=== PATIENT | male | born 1960 | race African-American/Black ===

== ENCOUNTER 2017-11-20 16:01 | Emergency (ER) | payer MEDICARE ==
[~2017-11-20] VITALS: Ht 198.1 cm; Wt 88.0 kg
[2017-11-20 16:09] VITALS: BP 161/88
== END 2017-11-20 16:43 | disposition left against medical advice (07) ==
LOC: ER 16:01
DX: S01.81XA Laceration without foreign body of other part of head, initial encounter (principal); W20.8XXA Other cause of strike by thrown, projected or falling object, initial encounter; Y93.9 Activity, unspecified; Y92.9 Unspecified place or not applicable
CPT/HCPCS: 99281

== ENCOUNTER 2021-02-07 00:53 | Emergency (ER) | payer BC, MEDICARE ==
[~2021-02-07] VITALS: Ht 198.1 cm; Wt 90.0 kg
[2021-02-07 03:12] LABS: BASOPHILS % 0.2 % (0.0-2.0); EOSINOPHILS % 1.6 % (0.0-5.0); HEMATOCRIT. 38.5 % (42.0-52.0); HEMOGLOBIN. 13.1 g/dL (14.0-18.0); LYMPHOCYTES % 22.9 % (20.0-50.0); MEAN CORPUSCULAR HEMOGLOBIN 32.4 pg (28.0-32.0); MEAN CORPUSCULAR VOLUME 95.4 fL (80.0-94.0); MEAN PLATELET VOLUME 8.6 fl (7.4-10.4); MONOCYTES % 6.7 % (2.0-8.0); NEUTROPHILS % 68.6 % (40.0-76.0); PLATELET 174 x1000/uL (130-400); RED BLOOD CELL COUNT 4.03 mill/uL (4.7-6.1); RED CELL DISTRIBUTION WIDTH 12.7 % (11.6-14.6)
[2021-02-07 03:19] LABS: CHLORIDE 108 mEq/L (98-107)
[2021-02-07 04:00] VITALS: BP 150/83
[2021-02-07] MEDS ORDERED: LORAZEPAM 1MG TABLET PO ONE (04:00)
[2021-02-07 05:02] LABS: CLARITY URINE CLEAR (CLEAR); COLOR URINE YELLOW (YELLOW); KETONES URINE NEGATIVE (NEGATIVE); LEUKOCYTE ESTERASE URINE NEGATIVE (NEGATIVE); NITRITE URINE NEGATIVE (NEGATIVE); OCCULT BLOOD URINE NEGATIVE (NEGATIVE); PH URINE 7.5 (4.5-8.0); PROTEIN URINE NEGATIVE (NEGATIVE); SPECIFIC GRAVITY URINE 1.016 (1.005-1.030)
== END 2021-02-07 04:29 | disposition home or self-care (01) ==
LOC: ER 00:53
DX: R07.89 Other chest pain (principal); F41.9 Anxiety disorder, unspecified
CPT/HCPCS: 36415; 71045; 80053; 81003; 84484; 85025; 93005; 99285

== ENCOUNTER 2021-04-25 23:06 | Emergency (ER) | payer MEDICARE, BC ==
[~2021-04-25] VITALS: Ht 195.6 cm; Wt 72.6 kg
[2021-04-25 23:30] VITALS: BP 130/64
== END 2021-04-26 00:44 | disposition left against medical advice (07) ==
LOC: ER 23:06
DX: R10.9 Unspecified abdominal pain (principal); E11.9 Type 2 diabetes mellitus without complications; I67.1 Cerebral aneurysm, nonruptured; I12.0 Hypertensive chronic kidney disease with stage 5 chronic kidney disease or end stage renal disease; E11.22 Type 2 diabetes mellitus with diabetic chronic kidney disease; N18.6 End stage renal disease; Z99.2 Dependence on renal dialysis; Z91.19 Patient's noncompliance with other medical treatment and regimen; Z98.890 Other specified postprocedural states
CPT/HCPCS: 93005; 99283

== ENCOUNTER 2021-06-03 18:15 | Emergency (ER) | payer BC, MEDICARE ==
[~2021-06-03] VITALS: Ht 198.1 cm; Wt 82.0 kg
[2021-06-03 18:20] VITALS: BP 149/93
== END 2021-06-03 22:49 | disposition left against medical advice (07) ==
LOC: ER 18:15
DX: Z53.21 Procedure and treatment not carried out due to patient leaving prior to being seen by health care provider (principal); I12.0 Hypertensive chronic kidney disease with stage 5 chronic kidney disease or end stage renal disease; E11.22 Type 2 diabetes mellitus with diabetic chronic kidney disease; N18.6 End stage renal disease; Z99.2 Dependence on renal dialysis

== ENCOUNTER 2023-12-21 22:29 | Emergency (ER) | payer MEDICARE, OTHER ==
[~2023-12-21] VITALS: Ht 198.1 cm; Wt 96.0 kg
[2023-12-21 22:55] VITALS: O2SAT 98
[2023-12-21] MEDS ORDERED: CEPHALEXIN 250MG CAPSULE PO ONE (23:15)
[2023-12-21] MEDS ORDERED: CEPH500C2 MT (23:16)
[2023-12-21] MEDS: CEPHALEXIN 250MG CAPSULE PO NR (23:30)
[2023-12-21 23:37] VITALS: BP 148/84; PULSE 64; RESP 18; TEMP 98.2
== END 2023-12-21 23:39 | disposition home or self-care (01) ==
LOC: ER 22:29
DX: N30.90 Cystitis, unspecified without hematuria (principal); E11.9 Type 2 diabetes mellitus without complications; N28.9 Disorder of kidney and ureter, unspecified; I10 Essential (primary) hypertension; Z98.890 Other specified postprocedural states
CPT/HCPCS: 99283

== ENCOUNTER 2024-02-27 08:23 | Emergency (ER) | payer OTHER ==
[~2024-02-27] VITALS: Ht 198.1 cm; Wt 91.0 kg
[~2024-02-27 08:23] MED LIST: CEPH500C2 MT
[2024-02-27 08:24] VITALS: O2SAT 100
[2024-02-27 08:27] VITALS: BP 128/86; PULSE 67; RESP 15; TEMP 98.7; O2SAT 98
[2024-02-27] MEDS ORDERED: ISOP30DR11 LEFT EAR (08:55)
[2024-02-27] MEDS ORDERED: CIPHCO LEFT EAR (08:55)
== END 2024-02-27 09:15 | disposition home or self-care (01) ==
LOC: ER 08:23
DX: H66.92 Otitis media, unspecified, left ear (principal); I10 Essential (primary) hypertension; E11.9 Type 2 diabetes mellitus without complications; N28.9 Disorder of kidney and ureter, unspecified; Z98.890 Other specified postprocedural states
CPT/HCPCS: 99283